=== PATIENT | female | born 1930 | race Caucasian/White ===

== ENCOUNTER 2017-04-22 22:13 | Emergency (ER) | payer MEDICAID, OTHER ==
[~2017-04-22] VITALS: Ht 165.1 cm; Wt 81.6 kg
[2017-04-22] MEDS ORDERED: MORPHINE SULFATE 4 MG/1 ML DISP.SYRIN IV ONE (23:30)
[2017-04-23] MEDS: VANCOMYCIN IV 1,000 MG in IV DEXTROSE 5% 250 ML IV ONE (01:17)
[2017-04-23] MEDS ORDERED: VANCOMYCIN IV 200 ML ONE (01:17)
[2017-04-23] MEDS ORDERED: MORPHINE SULFATE 4 MG/1 ML DISP.SYRIN ONE (01:17)
[2017-04-23 01:41] LABS: BASOPHILS # (AUTO) 0.1 K/uL (0.0-8.0); BASOPHILS % (AUTO) 0.7 % (0.0-2.0); EOSINOPHILS # (AUTO) 0.2 K/uL (0.0-0.7); EOSINOPHILS % (AUTO) 2.1 % (0.0-7.0); HEMATOCRIT 37.9 % (31.2-41.9); HEMOGLOBIN 13.4 g/dL (10.9-14.3); LYMPHOCYTES # (AUTO) 2.7 K/uL (20.0-40.0); LYMPHOCYTES % (AUTO) 26.6 % (20.5-51.5); MEAN CORPUSCULAR HEMOGLOBIN 30.8 uug (24.7-32.8); MEAN CORPUSCULAR HGB CONC 35 g/dL (32.3-35.6); MONOCYTES # (AUTO) 1.1 K/uL (2.0-10.0); MONOCYTES % (AUTO) 10.8 % (0.0-11.0); NEUTROPHILS % (AUTO) 59.8 % (38.5-71.5); PLATELET COUNT (AUTO) 285 K/uL (179-408); RED BLOOD CELL COUNT(AUTO) 4.36 MIL/uL (3.63-4.92)
[2017-04-23 02:12] LABS: CARBON DIOXIDE 30 mmol/L (21-32); CHLORIDE 100 mmol/L (98-107); GLUCOSE 97 mg/dL (74-106); POTASSIUM 4.2 mmol/L (3.5-5.1); UREA NITROGEN, BLOOD 29 mg/dL (7-18)
[2017-04-23 02:13] LABS: ALANINE AMINOTRANSFERASE 24 U/L (14-59); ALKALINE PHOSPHATASE 85 U/L (50-136); ASPARTATE AMINOTRANSFERASE 19 U/L (15-37); BILIRUBIN,DIRECT 0.1 mg/dL (0.0-0.2); BILIRUBIN,TOTAL 0.3 mg/dL (0.2-1.0); TOTAL PROTEIN, SERUM 6.8 g/dL (6.4-8.2)
[2017-04-23] MEDS ORDERED: Z GUARD REMEDY PASTE 57 GM TUBE TOP PRN (03:15)
[2017-04-23] MEDS ORDERED: HYDROCODONE/APAP 10-325 MG TABLET PO PRN (03:15)
[2017-04-23] MEDS ORDERED: MORPHINE SULFATE 2 MG/1 ML DISP.SYRIN IV PRN (03:15)
[2017-04-23] MEDS ORDERED: ONDANSETRON 4 MG/2 ML VIAL IV PRN (03:15)
[2017-04-23] MEDS ORDERED: HYDROCODONE/APAP 5-325MG TABLET PO PRN (03:15)
[2017-04-23] MEDS ORDERED: ACETAMINOPHEN 325 MG TABLET PO PRN (03:15)
[2017-04-23] MEDS ORDERED: MAGNESIUM HYDROXIDE 30 ML LIQUID UDC PO PRN (03:15)
--- NOTE | 2017-04-23 04:15 | NUR ---
Patient confused, attempting to remove IV. Daughter at bedside attempting to keep patient from being able to remove. However, patient's daughter is becoming tired and is worried that the patient will pull IV out when she is not there or not awake. ERMD notified, mittens applied as directed.
--- NOTE | 2017-04-23 04:40 | NUR ---
PAWEL spoke to Dr. De Luna at [facility]. who accepts the patient.
--- NOTE | 2017-04-23 05:12 | NUR ---
[facility] contacted for transportation, ETA [id number]. Authorization #[id number]
--- NOTE | 2017-04-23 05:44 | NUR ---
Spoke to Alva at [facility]. Patient will be transferred to room #607. Telephone number for report is . ETA for [facility] ambulance is [phone].
--- NOTE | 2017-04-23 06:18 | NUR ---
Attempted to complete medication reconciliation. Daughter states the patient is taking metoprolol, simvastatin, aricept, tylenol, warfarin buut does not know the dosage of medications or how often she takes them. The daughter is also not sure if all of these medications are still being given to the patient.
--- NOTE | 2017-04-23 07:20 | NUR ---
REC'D BEDSIDE REPORT FROM LISSA REYES, PT SLEEPING EYE'S CLOSED, FAMILY AT BEDSIDE. PT AWAITING FOR AMBULANCE TRANSFER TO [facility], CD COPY OF XRAYS DONE, TRANSFER ACKNOWLEDGMENT FORM COMPLETED.
[2017-04-23] MEDS ORDERED: ACETAMINOPHEN 325 MG TABLET PO ONE (07:30)
[2017-04-23] MEDS ORDERED: ACETAMINOPHEN 325 MG TABLET ONE ×2 (07:50→08:22)
--- NOTE | 2017-04-23 09:45 | NUR ---
sbar report to [facility]. pt went via private ambulance
== END 2017-04-23 10:00 | disposition short-term general hospital (02) ==
LOC: ER 22:14
DX: M25.551 Pain in right hip (principal); I10 Essential (primary) hypertension; G30.9 Alzheimer's disease, unspecified; F02.80 Dementia in other diseases classified elsewhere, unspecified severity, without behavioral disturbance, psychotic disturbance, mood disturbance, and anxiety; E78.5 Hyperlipidemia, unspecified; Z96.642 Presence of left artificial hip joint
CPT/HCPCS: 36415; 72170; 73551; 85025; 85730; 87040; A4663; J2270; J3370